=== PATIENT | female | born 1960 | race Caucasian/White ===

== ENCOUNTER 2019-09-22 09:08 | Outpatient (CLI) | payer OTHER, SELFPAY ==
--- NOTE | 2019-09-22 09:30 | USCV_ITS ---
Noelle Ann Age: 59 Gender: F : 1960 Exam Date: 09/22/2019 09:31 Ordering Phys: Breonna Viveros Technologist: Jade Rosa [place]am [place] [facility] [place] Indication: SOB BP: 143 / 70 HR: 57 Rhythm: Sinus Technical Quality: Adequate MEASUREMENTS (Male / Female) Normal Values 2D ECHO LV Diastolic Diameter PLAX 3.9 cm 4.2 - 5.9 / 3.9 - 5.3 cm LV Systolic Diameter PLAX 2.9 cm LV Chamber Size 2.5 cm IVS Diastolic Thickness 1.1 cm 0.6 - 1.0 / 0.6 - 0.9 cm IVS Systolic Thickness 1.2 cm LVPW Diastolic Thickness 1.8 cm 0.6 - 1.0 / 0.6 - 0.9 cm LVPW Systolic Thickness 2.1 cm RV Chamber Size 2.5 cm LVOT Diameter 2.0 cm LV Ejection Fraction 2D Teich 50.7 % LV Ejection Fraction MOD 2C 23.3 % LV Ejection Fraction 2C AL 22.4 % LA Diameter 4.4 cm LA Width 3.0 cm LA Height 2.9 cm RA Width 3.7 cm RA Height 3.1 cm Aorta at Sinotubular Diameter 2.5 cm M-MODE LV Diastolic Diameter MM 4.2 cm 4.2 - 5.9 / 3.9 - 5.3 cm LV Systolic Diameter MM 2.6 cm LV Ejection Fraction MM Teich 68.1 % IVS Diastolic Thickness MM 0.6 cm 0.6 - 1.0 / 0.6 - 0.9 cm IVS Systolic Thickness MM 1.0 cm LVPW Diastolic Thickness MM 0.9 cm 0.6 - 1.0 / 0.6 - 0.9 cm LVPW Systolic Thickness MM 1.5 cm Aortic Annulus Diameter 2.8 cm LA Ao Ratio MM 1.6 MV E Point Septal Separation 0.5 cm DOPPLER AV Peak Velocity 120.0 cm/s LVOT Peak Velocity 113.0 cm/s AV Area Cont Eq vti 3.3 cm squared AV Area Cont Eq pk 3.1 cm squared MV Area PHT 4.8 cm squared Mitral E to A Ratio 1.3 MV E' Velocity 10.0 cm/s Mitral E to MV E' Ratio 9.4 Mitral E to LV E' Lateral Ratio 10.3 Mitral E to LV E' Septal Ratio 8.7 TR Peak Velocity 199.0 cm/s TR Peak Gradient 15.9 mmHg TV Peak E Velocity 76.0 cm/s Right Atrial Pressure 3.0 mmHg Pulmonary Artery Systolic Pressu 18.8 mmHg PV Peak Velocity 61.0 cm/s RV Acceleration Time 0.2 s RV Ejection Time 0.4 s RV AcT/ET 0.5 FINDINGS Left Ventricle Normal left ventricular size, systolic function and wall thickness, with no regional wall motion abnormalities. Normal left ventricular wall thickness. Normal diastolic filling pattern. Left ventricular ejection fraction is estimated at 60 %. Right Ventricle The right ventricle is normal in size and function. Right Atrium The right atrium is normal in size. Left Atrium The left atrium is normal in size. Mitral Valve Structurally normal mitral valve without significant stenosis or prolapse. There is no mitral regurgitation. Aortic Valve Structurally normal aortic valve without significant sclerosis or stenosis. There is no aortic regurgitation. Tricuspid Valve Structurally normal tricuspid valve without significant stenosis or regurgitation. Pulmonary artery systolic pressure is normal. Pulmonic Valve Structurally normal pulmonic valve without significant stenosis. There is no pulmonic regurgitation. Pericardium Normal pericardium without effusion. Aorta Normal ascending aorta dimension. CONCLUSIONS Normal transthoracic echocardiogram. There are no prior echocardiogram studies to compare. Dr. Miguel Burgess MD (Electronically Signed) Final Date: 22 Sep 2019 11:16 S
== END 2019-09-22 09:09 | disposition home or self-care (01) ==
LOC: RAD 09:16
PROVIDERS: PCP Nurse Practitioner Family; Visit Provider Nurse Practitioner Family
DX: R06.02 Shortness of breath (principal)
CPT/HCPCS: 93306

== ENCOUNTER 2020-03-15 18:53 | Emergency (ER) | payer OTHER, SELFPAY ==
[2020-03-15 19:00] VITALS: BP 186/101; PULSE 63; RESP 18; TEMP 36.7; O2SAT 96; BMI 27.8
[2020-03-15 19:56] VITALS: BP 199/120; PULSE 68; RESP 16; O2SAT 98
--- NOTE | 2020-03-15 20:13 | XR_ITS ---
WS: [id number] Portable AP upright chest, 03/15/2020 Clinical Data: stroke symptoms Comparison: None. Findings: No nodules, masses or effusions are seen. The heart is normal. The pulmonary vascularity is not increased. No pneumonia or pneumothorax is seen. Monitor leads are on the chest wall. XR/XR chest 1V portable [id number] Impression: Negative chest.
--- NOTE | 2020-03-15 20:13 | CTR_ITS ---
PROCEDURE INFORMATION: Exam: CT Angiography Head With Contrast Exam date and time: 03/15/2020 8:20 PM Age: 59 years old Clinical indication: Weakness; Additional info: Stroke symptoms TECHNIQUE: Imaging protocol: Computed tomography angiography of the head with intravenous contrast. 3D rendering (Not supervised by radiologist): MIP and/or 3D reconstructed images were created by the technologist. Radiation optimization: All CT scans at this facility use at least one of these dose optimization techniques: automated exposure control; mA and/or kV adjustment per patient size (includes targeted exams where dose is matched to clinical indication); or iterative reconstruction. Contrast material: OMNI 350; Contrast volume: 95 ml; Contrast route: INTRAVENOUS (IV); COMPARISON: No relevant prior studies available. RADIATION DOSE METRICS: Total DLP (mGy-cm): 2565.19 FINDINGS: ANTERIOR CIRCULATION: Right internal carotid artery: There is some mild atherosclerotic change in the right cavernous carotid artery without stenosis. Right middle cerebral artery: Unremarkable. No occlusion or significant stenosis. No aneurysm. 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 The right anterior cerebral artery is supplied via the anterior communicating artery. Left internal carotid artery: There is mild atherosclerotic change in the left cavernous carotid artery without stenosis. Left middle cerebral artery: Unremarkable. No occlusion or significant stenosis. No aneurysm. Left anterior cerebral artery: Unremarkable. No occlusion or significant stenosis. No aneurysm. POSTERIOR CIRCULATION: Right vertebral artery: Unremarkable. No occlusion or significant stenosis. No aneurysm. Left vertebral artery: Unremarkable. No occlusion or significant stenosis. No aneurysm. Basilar artery: Unremarkable. No occlusion or significant stenosis. No aneurysm. Right posterior cerebral artery: Unremarkable. No occlusion or significant stenosis. No aneurysm. Left posterior cerebral artery: Unremarkable. No occlusion or significant stenosis. No aneurysm. Brain: No definite mass, mass effect, or midline shift. Cerebral ventricles: Normal. No ventriculomegaly. Bones/joints: Unremarkable. No acute fracture. Soft tissues: Unremarkable. IMPRESSION: No major vascular occlusion or stenosis in the intracranial circulation. PROCEDURE INFORMATION: Exam: CT Angiography Neck With Contrast Exam date and time: 03/15/2020 8:20 PM Age: 59 years old Clinical indication: Weakness; Additional info: Stroke symptoms TECHNIQUE: Imaging protocol: Computed tomography angiography of the neck with intravenous contrast. 3D rendering (Not supervised by radiologist): MIP and/or 3D reconstructed images were created by the technologist. Radiation optimization: All CT scans at this facility use at least one of these dose optimization techniques: automated exposure control; mA and/or kV adjustment per patient size (includes targeted exams where dose is matched to clinical indication); or iterative reconstruction. Contrast material: OMNI 350; Contrast volume: 95 ml; Contrast route: INTRAVENOUS (IV); COMPARISON: No relevant prior studies available. RADIATION DOSE METRICS: Total DLP (mGy-cm): 2565.19 FINDINGS: Right common carotid artery: Right common carotid artery arises from the aortic arch. Right internal carotid artery: There is atherosclerotic plaque and severe stenosis in the proximal right internal carotid artery with approximately 80% stenosis at the origin of the right internal carotid artery. Right external carotid artery: No occlusion or stenosis of the origin. Right vertebral artery: No stenosis. No dissection or occlusion. Left common carotid artery: No stenosis. No dissection or occlusion. Left internal carotid artery: There is atherosclerotic plaque at the origin of the left internal carotid artery with severe stenosis measuring 80-90% according to the NASCET criteria. Left external carotid artery: No occlusion or stenosis of the origin. Left vertebral artery: No stenosis. No dissection or occlusion. Subclavian arteries: There is an aberrant right subclavian artery. Bones/joints: No acute fracture. Soft tissues: Normal. No significant soft tissue swelling. 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 REFERENCES: NASCET CRITERIA. The degree of internal carotid artery stenosis is based on NASCET criteria. Normal is no stenosis. Mild is less than 50% stenosis. Moderate is 50-69% stenosis. Severe is 70% to 99% stenosis. Total occlusion is no detectable patent lumen. Radiation Dose CTDIVOL = (mGy): DLP = 2565.19~2565.19 (mGy-cm)
--- NOTE | 2020-03-15 20:13 | ECG_ITS ---
[facility] Test Date: 2020-03-15 Pat Name: Noelle Ann Department: Room: Gender: Female [employer]ing [employer] Tender: : 1960 Requested By: Victor Manuel Felix I Order Number: [id number] Ai MD: Ross Muniz M.D. Measurements Intervals [place] Rate: 59 P: 50 FL: 170 QRS: -1 QRSD: 92 T: 41 QT: 444 QTc: 441 Interpretive Statements SINUS BRADYCARDIA WITH SINUS ARRHYTHMIA INCOMPLETE RIGHT BUNDLE BRANCH BLOCK [90+ ms QRS DURATION, TERMINAL R IN V1/V2, 40+ ms S IN I/aVL/V4/V5/V6] SEPTAL MYOCARDIAL INFARCTION , OF INDETERMINATE AGE [40+ ms Q WAVE IN V1/V2] No previous ECG available for comparison Electronically Signed On 03-16-2020 10:15:43 STRAIN TECHNICIAN by Ross Muniz M.D. [id number]
--- NOTE | 2020-03-15 20:13 | CTR_ITS ---
PROCEDURE INFORMATION: Exam: CT Head Without Contrast Exam date and time: 03/15/2020 8:20 PM Age: 59 years old Clinical indication: Dizziness and weakness, extremity; Bilateral; Additional info: Symptoms of acute stroke TECHNIQUE: Imaging protocol: Computed tomography of the head without contrast. Radiation optimization: All CT scans at this facility use at least one of these dose optimization techniques: automated exposure control; mA and/or kV adjustment per patient size (includes targeted exams where dose is matched to clinical indication); or iterative reconstruction. Other technique: STROKE PROTOCOL was implemented. COMPARISON: No relevant prior studies available. RADIATION DOSE METRICS: Total DLP (mGy-cm): 787.15 FINDINGS: Brain: Normal. No hemorrhage. Unremarkable white matter. No mass effect. Cerebral ventricles: No ventriculomegaly. Bones/joints: Unremarkable. No acute fracture. Paranasal sinuses: Visualized sinuses are unremarkable. No fluid levels. Mastoid air cells: Visualized mastoid air cells are well aerated. Soft tissues: Unremarkable. CT/CT head wo con* [id number] IMPRESSION: No acute intracranial abnormality. ASSESSMENT: ASPECTS ([place] Stroke Program Early CT Score) is 10. Radiation Dose CTDIVOL = (mGy): DLP = 787.15 (mGy-cm)
[2020-03-15 20:19] LABS: Add Urine Microscopic? NO
[2020-03-15] MEDS: iohexol 350 mg/mL 100 mL Btl IV (20:26)
--- NOTE | 2020-03-15 20:35 | W.ED.DIZZY ---
HPI - Dizziness General: Chief Complaint: Dizziness Stated Complaint: dizzy, weakness, pt thinks stroke Time Seen by Provider: 03/15/20 19:47 Source: patient and family Mode of arrival: ambulatory Limitations: no limitations History of Present Illness: HPI Narrative: Patient is a 59-year-old with a history of hypertension, carotid artery stenosis with a 67% blockage of her carotid arteries from a few years ago. 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 Symptoms started about 1820 hours. Symptoms have pretty much resolved now. She has no prior history of a CVA, she denies any falls, denies any fever. MD elicited complaint: dizziness, lightheadedness and difficulty walking Onset (ago): hour(s) (2) Timing: sudden onset Severity: moderate Description: lightheadedness, off-balance and difficulty walking History of similar symptoms: No Exacerbating factors: nothing Relieving factors: nothing Associated symptoms: Reports headache(s) and nausea; Denies abnormal vaginal bleeding, change in hearing, chest pain, chills, cough, diaphoresis, ear discharge, ear pressure, fevers/chills, malaise, nasal congestion, palpitations, rash, short of breath, syncope, tinnitus, vomiting or weakness Associated neuro symptoms: Reports gait changes; Deny confusion, difficulty speaking, dysphagia, diplopia, extremity weakness, facial numbness, facial weakness or numbness in extremities Stroke scale total: 0 Review of Systems General: Reports: 10 or more systems reviewed and unremarkable except in HPI and below Const: Denies: chills, malaise or diaphoresis Eyes: Denies: change in vision or blurry vision ENMT: Denies: ear discharge, change in hearing, tinnitus or nasal congestion Card: Denies: chest pain, palpitations or syncope Resp: Denies: dyspnea, productive cough or non-productive cough GI: Reports: nausea; Denies: vomiting or dysphagia : Denies: flank pain, difficulty voiding, dysuria, urinary frequency, urinary urgency or urinary hesitancy Musc: Denies: neck pain, back pain or extremity swelling Skin/Breast: Denies: rash, pruritus or erythema Neuro: Reports: headache(s) and difficulty walking; Denies: numbness in extremities or confusion Endo: Denies: polyuria, polydipsia or tired all the time [facility] PFSH: Medical History (Reviewed 03/15/20 @ 22:57 by Victor Manuel Felix [place], [facility] Anxiety and depression Carotid artery stenosis COPD (chronic obstructive pulmonary disease) HTN (hypertension) IBS (irritable bowel syndrome) Renal artery stenosis Status post proximal row carpectomy of wrist Surgical History (Reviewed 03/15/20 @ 22:57 by Victor Manuel Felix MD, [facility] S/P hysterectomy 2007 S/P rotator cuff repair S/P tonsillectomy and adenoidectomy 1960s S/P tubal ligation Family History (Reviewed 03/15/20 @ 22:57 by Victor Manuel Felix MD, [facility] Mother , malignant liver cancer Heart disease Hypertension Diabetes Cancer Father Heart disease Myocardial infarction Hypertension Family/Other Hypertension Sister Diabetes Daughter Diabetes Social History (Reviewed 03/15/20 @ 22:57 by Victor Manuel Felix MD, [facility] Smoking and tobacco status: current every day smoker History of recent travel: No Physical Exam Const: COMMON NORMALS: no acute distress, average body habitus, patient oriented x3, no limitations, healthy appearing, alert and well nourished HENMT: COMMON NORMALS: normocephalic, atraumatic and moist oral mucous membranes HEAD & SCALP: normocephalic and atraumatic Eye: COMMON NORMALS: Equal, round and reactive pupils present, EOMs intact bilaterally, conjunctivae normal and no scleral icterus CONJUNCTIVA: Yes conjunctivae normal PUPIL: Yes Equal, round and reactive pupils present Neck/C-Spine: COMMON NORMALS: full ROM, supple, no meningeal signs, no JVD and No carotid bruits Resp: COMMON NORMALS: normal respiratory effort, No retractions, No use of accessory muscles, clear to auscultation bilaterally and percussion normal AUSCULTATION: clear to auscultation bilaterally PERCUSSION: percussion normal Cardio: COMMON NORMALS: no JVD, regular rate, regular rhythm, S1 normal heart sound present, S2 normal heart sound present, No gallops present (Cardio), No clicks present (Cardio), No murmurs present (Cardio), No rub (Cardio) and Peripheral pulses 2+ throughout RATE: regular rate RHYTHM: regular rhythm HEART SOUNDS: S1 normal heart sound present and S2 normal heart sound present PERIPHERAL PULSES: Peripheral pulses 2+ throughout GI: COMMON NORMALS: Normal to inspection, nondistended, normoactive bowel sounds present, Soft to palpation, non-tender, No hepatosplenomegaly present, no masses and no bruits PALPATION: Yes Soft to palpation and Yes No hepatosplenomegaly present Extremity: COMMON NORMALS: normal to inspection, full ROM, capillary refill normal, no calf tenderness and no pedal edema Neuro: COMMON NORMALS: patient oriented x3 SENSORIUM/ORIENTATION: Yes alert MENINGEAL SIGNS: Yes no meningeal signs Skin: COMMON NORMALS: no rashes or lesions noted, no wounds, turgor normal, no jaundice, no petechiae and no mottling GENERAL SKIN EXAM: no rashes or lesions noted and turgor normal Course Reevaluation(s): Reevaluation #1: Discussed her lab and imaging findings with her. Also discussed my conversation with the neurologist with her. Advised that because of the severe stenosis she probably needs further work-up preferably inpatient. However the patient is determined not to be admitted to the hospital. She says she will rest and not do anything strenuous and will follow-up outpatient. She is very resistant to hospitalization. She understands the risks involved but desires to be discharged. She agrees to follow-up with Dr. Olivares in the office and to obtain an outpatient MRI. We will start her on Plavix and Lipitor. She already takes aspirin. She had had a previous adverse effect from a statin in the past but is willing to try it again. Time: 21:45 Consultations: Consultation #1: Discussed the patient with Dr. Olivares. With the degree of carotid artery stenosis she is very high risk and she will benefit from admission and work-up. I explained my conversation with the patient and that she did not want to be admitted so she advised an MRI of her brain to be done as soon as possible and she would like to see the patient within 1 week. Meanwhile we will start the patient on Plavix, continue aspirin, and start her on Lipitor. Time: 21:30 Vital Signs: Vital signs: Vital Signs Temperature 98.1 F 03/15/20 19:00 Pulse Rate 68 03/15/20 22:42 Respiratory Rate 18 03/15/20 22:42 Blood Pressure 188/88 03/15/20 22:42 Pulse Oximetry 98 03/15/20 22:42 MDM - Dizziness MDM Narrative: Medical decision making narrative: 59-year-old female patient who presented to the emergency department with strokelike symptoms. A stroke alert was called and emergent head CT and head and neck CTA were obtained. Head CT was negative CTA of her head and neck showed severe bilateral carotid artery stenosis. The patient's previous numbers were 67% according to her, now they are 80 and 90% occluded. I had several conversations with the patient but the patient was adamant that she would not be admitted to the hospital and opted to have an outpatient work-up. She will be given 1 week off from work as she performs strenuous activities at work. She was given a loading dose of Plavix in the emergency department and discharged home with a prescription for Plavix and atorvastatin. She will obtain an urgent outpatient MRI of her brain and will see the neurologist within 1 week. Medical Records: Attestation: I reviewed the patient's medical records. Lab Data: Attestation: I reviewed the patient's lab results. Labs: Lab Results 03/15/20 03/15/20 03/15/20 Range/Units 20:10 20:10 20:10 WBC Cancelled Corrected WBC Cancelled RBC Cancelled Hgb Cancelled Hct Cancelled MCV Cancelled MCH Cancelled MCHC Cancelled RDW Cancelled Plt Count Cancelled MPV Cancelled Gran % Cancelled Neut % (Auto) Cancelled Lymph % (Auto) Cancelled [place] % (Auto) Cancelled Eos % (Auto) Cancelled Baso % (Auto) Cancelled Neut # (Auto) Cancelled Lymph # (Auto) Cancelled [place] # (Auto) Cancelled Eos # (Auto) Cancelled Baso # (Auto) Cancelled Absolute Gran (aut o) Cancelled Nucleated RBC % (a uto) Cancelled Nucleated RBCs # Cancelled PT 12.70 (12.1-14.9) SECO NDS INR 0.93 (0.8-1.2) APTT 23.4 L (23.9-36.7) SECO NDS Sodium 140 (136-145) mmol/L Potassium 4.1 (3.5-5.1) mmol/L Chloride 103 (98-107) mmol/L Carbon Dioxide 26 (22-29) mmol/L Anion Gap 15.1 (5-19) BUN 10 (6-20) mg/dL Creatinine 0.7 (0.5-0.9) mg/dL GFR Calculation 85.6 L (90-130) mL/min Glucose 84 (65-115) mg/dL POC Glucose (70-110) mg/dL Calculated Osmolal ity 288 (285-295) mOsm/k g Calcium 9.4 (8.5-10.5) mg/dL Total Bilirubin 0.3 (0.15-1.2) mg/dL AST 19 (0-32) U/L ALT 13 (0-33) U/L Alkaline Phosphata se 83 (35-105) IU/L Troponin T Baselin e (0-10) ng/L Total Protein 7.0 (6.6-8.7) g/dL Albumin 4.3 (3.5-5.2) g/dL Globulin 2.7 (1.3-4.6) g/dL Urine Color (Yellow) Urine Appearance (CLEAR) Urine pH (5-7) Ur Specific Gravit y (1.005-1.030) Urine Protein (Negative) Urine Glucose (UA) (Normal) Urine Ketones (Negative) Urine Blood (Negative) Urine Nitrate (Negative) Urine Bilirubin (Negative) Urine Urobilinogen (Negative) mg/dL Ur Leukocyte Aundrea ase (Negative) Urine Opiates Scre en (Negative) ng/mL Ur Barbiturates Sc reen (Negative) ng/mL Ur Phencyclidine S crn (Negative) ng/mL Ur Amphetamines Sc reen (Negative) ng/mL U Benzodiazepines Scrn (Negative) ng/mL Urine Cocaine Scre en (Negative) ng/mL U Marijuana (THC) Screen (Negative) ng/mL 03/15/20 03/15/20 03/15/20 Range/Units 20:10 20:10 20:10 WBC Corrected WBC RBC Hgb Hct MCV MCH MCHC RDW Plt Count MPV Gran % Neut % (Auto) Lymph % (Auto) [place] % (Auto) Eos % (Auto) Baso % (Auto) Neut # (Auto) Lymph # (Auto) [place] # (Auto) Eos # (Auto) Baso # (Auto) Absolute Gran (aut o) Nucleated RBC % (a uto) Nucleated RBCs # PT (12.1-14.9) SECO NDS INR (0.8-1.2) APTT (23.9-36.7) SECO NDS Sodium (136-145) mmol/L Potassium (3.5-5.1) mmol/L Chloride (98-107) mmol/L Carbon Dioxide (22-29) mmol/L Anion Gap (5-19) BUN (6-20) mg/dL Creatinine (0.5-0.9) mg/dL GFR Calculation (90-130) mL/min Glucose (65-115) mg/dL POC Glucose (70-110) mg/dL Calculated Osmolal ity (285-295) mOsm/k g Calcium (8.5-10.5) mg/dL Total Bilirubin (0.15-1.2) mg/dL AST (0-32) U/L ALT (0-33) U/L Alkaline Phosphata se (35-105) IU/L Troponin T Baselin e 6 (0-10) ng/L Total Protein (6.6-8.7) g/dL Albumin (3.5-5.2) g/dL Globulin (1.3-4.6) g/dL Urine Color Yellow (Yellow) Urine Appearance Clear (CLEAR) Urine pH 6.0 (5-7) Ur Specific Gravit y 1.015 (1.005-1.030) Urine Protein Neg (Negative) Urine Glucose (UA) Norm (Normal) Urine Ketones Negative (Negative) Urine Blood Neg (Negative) Urine Nitrate Negative (Negative) Urine Bilirubin Neg (Negative) Urine Urobilinogen Norm (Negative) mg/dL Ur Leukocyte Aundrea ase Negative (Negative) Urine Opiates Scre en Negative (Negative) ng/mL Ur Barbiturates Sc reen Negative (Negative) ng/mL Ur Phencyclidine S crn Negative (Negative) ng/mL Ur Amphetamines Sc reen Negative (Negative) ng/mL U Benzodiazepines Scrn Negative (Negative) ng/mL Urine Cocaine Scre en Negative (Negative) ng/mL U Marijuana (THC) Screen Positive H (Negative) ng/mL 03/15/20 03/15/20 Range/Units 20:38 20:50 WBC 7.4 Corrected WBC RBC 4.91 Hgb 14.6 Hct 43.7 MCV 89.0 MCH 29.7 MCHC 33.4 RDW 12.2 Plt Count 233 MPV 9.5 Gran % Neut % (Auto) 45.1 Lymph % (Auto) 45.9 [place] % (Auto) 6.9 Eos % (Auto) 1.6 Baso % (Auto) 0.4 Neut # (Auto) 3.34 Lymph # (Auto) 3.4 [place] # (Auto) 0.5 Eos # (Auto) 0.1 Baso # (Auto) 0.0 Absolute Gran (aut o) Nucleated RBC % (a uto) 0 Nucleated RBCs # 0.0 PT (12.1-14.9) SECO NDS INR (0.8-1.2) APTT (23.9-36.7) SECO NDS Sodium (136-145) mmol/L Potassium (3.5-5.1) mmol/L Chloride (98-107) mmol/L Carbon Dioxide (22-29) mmol/L Anion Gap (5-19) BUN (6-20) mg/dL Creatinine (0.5-0.9) mg/dL GFR Calculation (90-130) mL/min Glucose (65-115) mg/dL POC Glucose 86 (70-110) mg/dL Calculated Osmolal ity (285-295) mOsm/k g Calcium (8.5-10.5) mg/dL Total Bilirubin (0.15-1.2) mg/dL AST (0-32) U/L ALT (0-33) U/L Alkaline Phosphata se (35-105) IU/L Troponin T Baselin e (0-10) ng/L Total Protein (6.6-8.7) g/dL Albumin (3.5-5.2) g/dL Globulin (1.3-4.6) g/dL Urine Color (Yellow) Urine Appearance (CLEAR) Urine pH (5-7) Ur Specific Gravit y (1.005-1.030) Urine Protein (Negative) Urine Glucose (UA) (Normal) Urine Ketones (Negative) Urine Blood (Negative) Urine Nitrate (Negative) Urine Bilirubin (Negative) Urine Urobilinogen (Negative) mg/dL Ur Leukocyte Aundrea ase (Negative) Urine Opiates Scre en (Negative) ng/mL Ur Barbiturates Sc reen (Negative) ng/mL Ur Phencyclidine S crn (Negative) ng/mL Ur Amphetamines Sc reen (Negative) ng/mL U Benzodiazepines Scrn (Negative) ng/mL Urine Cocaine Scre en (Negative) ng/mL U Marijuana (THC) Screen (Negative) ng/mL Imaging Data^: CT Head: Attestation: I personally reviewed and interpreted this imaging study as follows: Radiologist's impression: [facility] [address] [facility] [place] [address] CT Scan Report Signed Patient: Noelle Ann #: [id number] : 1Acct#:[id number] Age/Sex: 59 / FADM Date: 03/15/20 Loc: ERRoom/Bed: Attending Dr: Ordering Provider/Ordering MD: Victor Manuel Felix [place], [facility] Date of Service: 03/15/20 Procedure(s): CT head wo con* [id number] Accession Number(s): [id number] Report Number: [id number] PROCEDURE INFORMATION: Exam: CT Head Without Contrast Exam date and time: 03/15/2020 8:20 PM Age: 59 years old Clinical indication: Dizziness and weakness, extremity; Bilateral; Additional info: Symptoms of acute stroke TECHNIQUE: Imaging protocol: Computed tomography of the head without contrast. Radiation optimization: All CT scans at this facility use at least one of these dose optimization techniques: automated exposure control; mA and/or kV adjustment per patient size (includes targeted exams where dose is matched to clinical indication); or iterative reconstruction. Other technique: STROKE PROTOCOL was implemented. COMPARISON: No relevant prior studies available. RADIATION DOSE METRICS: Total DLP (mGy-cm): 787.15 FINDINGS: Brain: Normal. No hemorrhage. Unremarkable white matter. No mass effect. Cerebral ventricles: No ventriculomegaly. Bones/joints: Unremarkable. No acute fracture. Paranasal sinuses: Visualized sinuses are unremarkable. No fluid levels. Mastoid air cells: Visualized mastoid air cells are well aerated. Soft tissues: Unremarkable. CT/CT head wo con* [id number] IMPRESSION: No acute intracranial abnormality. ASSESSMENT: ASPECTS ([place] Stroke Program Early CT Score) is 10. Radiation Dose CTDIVOL = (mGy): DLP = 787.15 (mGy-cm) Dictated By:Shayne Park Signed By:Epifanio Park Date/Time:03/15/202032 DD/ [address]: Attestation: I personally reviewed and interpreted this imaging study as follows: Radiologist's impression: [address] [place] [address] CT Scan Report Signed Patient: Noelle Ann #: [id number] : 1Acct#:[id number] Age/Sex: 59 / FADM Date: 03/15/20 Loc: ERRoom/Bed: Attending Dr: Ordering Provider/Ordering MD: Victor Manuel Felix [place], [facility] Date of Service: 03/15/20 Procedure(s): CT angio headneck* [id number] Accession Number(s): [id number] Report Number: [id number] PROCEDURE INFORMATION: Exam: CT Angiography Head With Contrast Exam date and time: 03/15/2020 8:20 PM Age: 59 years old Clinical indication: Weakness; Additional info: Stroke symptoms TECHNIQUE: Imaging protocol: Computed tomography angiography of the head with intravenous contrast. 3D rendering (Not supervised by radiologist): MIP and/or 3D reconstructed images were created by the technologist. Radiation optimization: All CT scans at this facility use at least one of these dose optimization techniques: automated exposure control; mA and/or kV adjustment per patient size (includes targeted exams where dose is matched to clinical indication); or iterative reconstruction. Contrast material: OMNI 350; Contrast volume: 95 ml; Contrast route: INTRAVENOUS (IV); COMPARISON: No relevant prior studies available. RADIATION DOSE METRICS: Total DLP (mGy-cm): 2565.19 FINDINGS: ANTERIOR CIRCULATION: Right internal carotid artery: There is some mild atherosclerotic change in the right cavernous carotid artery without stenosis. Right middle cerebral artery: Unremarkable. No occlusion or significant stenosis. No aneurysm. 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 The right anterior cerebral artery is supplied via the anterior communicating artery. Left internal carotid artery: There is mild atherosclerotic change in the left cavernous carotid artery without stenosis. Left middle cerebral artery: Unremarkable. No occlusion or significant stenosis. No aneurysm. Left anterior cerebral artery: Unremarkable. No occlusion or significant stenosis. No aneurysm. POSTERIOR CIRCULATION: Right vertebral artery: Unremarkable. No occlusion or significant stenosis. No aneurysm. Left vertebral artery: Unremarkable. No occlusion or significant stenosis. No aneurysm. Basilar artery: Unremarkable. No occlusion or significant stenosis. No aneurysm. Right posterior cerebral artery: Unremarkable. No occlusion or significant stenosis. No aneurysm. Left posterior cerebral artery: Unremarkable. No occlusion or significant stenosis. No aneurysm. Brain: No definite mass, mass effect, or midline shift. Cerebral ventricles: Normal. No ventriculomegaly. Bones/joints: Unremarkable. No acute fracture. Soft tissues: Unremarkable. IMPRESSION: No major vascular occlusion or stenosis in the intracranial circulation. PROCEDURE INFORMATION: Exam: CT Angiography Neck With Contrast Exam date and time: 03/15/2020 8:20 PM Age: 59 years old Clinical indication: Weakness; Additional info: Stroke symptoms TECHNIQUE: Imaging protocol: Computed tomography angiography of the neck with intravenous contrast. 3D rendering (Not supervised by radiologist): MIP and/or 3D reconstructed images were created by the technologist. Radiation optimization: All CT scans at this facility use at least one of these dose optimization techniques: automated exposure control; mA and/or kV adjustment per patient size (includes targeted exams where dose is matched to clinical indication); or iterative reconstruction. Contrast material: OMNI 350; Contrast volume: 95 ml; Contrast route: INTRAVENOUS (IV); COMPARISON: No relevant prior studies available. RADIATION DOSE METRICS: Total DLP (mGy-cm): 2565.19 FINDINGS: Right common carotid artery: Right common carotid artery arises from the aortic arch. Right internal carotid artery: There is atherosclerotic plaque and severe stenosis in the proximal right internal carotid artery with approximately 80% stenosis at the origin of the right internal carotid artery. Right external carotid artery: No occlusion or stenosis of the origin. Right vertebral artery: No stenosis. No dissection or occlusion. Left common carotid artery: No stenosis. No dissection or occlusion. Left internal carotid artery: There is atherosclerotic plaque at the origin of the left internal carotid artery with severe stenosis measuring 80-90% according to the NASCET criteria. Left external carotid artery: No occlusion or stenosis of the origin. Left vertebral artery: No stenosis. No dissection or occlusion. Subclavian arteries: There is an aberrant right subclavian artery. Bones/joints: No acute fracture. Soft tissues: Normal. No significant soft tissue swelling. CT/CT angio headneck* [id number] IMPRESSION: Severe stenoses of the proximal internal carotid arteries bilaterally. REFERENCES: NASCET CRITERIA. The degree of internal carotid artery stenosis is based on NASCET criteria. Normal is no stenosis. Mild is less than 50% stenosis. Moderate is 50-69% stenosis. Severe is 70% to 99% stenosis. Total occlusion is no detectable patent lumen. Radiation Dose CTDIVOL = (mGy): DLP = 2565.19~2565.19 (mGy-cm) Dictated By:Shayne Park Signed By:Jacob Parkigned Date/Time:03/15/202045 DD/ 43 EKG Data^: EKG 1: Attestation: I personally reviewed and interpreted this EKG as follows: EKG interpretation date: 03/15/20 EKG interpretation time: 19:34 Prior EKG tracings: not available for review Interpretation: Sinus bradycardia. Heart rate 59 bpm. Incomplete right bundle branch block. ST depression in leads II and III Discharge Plan Discharge Patient Disposition: Home Clinical Impression: Cerebrovascular accident Qualifiers: CVA mechanism: unspecified Qualified Code(s): I63.9 - Cerebral infarction, unspecified Condition: Stable Prescriptions: New Plavix 75 mg tablet 75 mg PO DAILY Qty: 30 RF: 0 Lipitor 40 mg tablet 40 mg PO DAILY Qty: 30 RF: 0 Continued citalopram [Celexa] 20 mg tablet 40 mg PO DAILY RF: 0 alprazolam 0.5 mg tablet 0.5 mg PO TID PRN (Reason: Anxiety) RF: 0 biotin 5 mg capsule 5 mg PO DAILY RF: 0 cholecalciferol (vitamin D3) 125 mcg (5,000 unit) capsule 5,000 unit PO DAILY RF: 0 amlodipine 5 mg tablet 5 mg PO BID 90 Days Qty: 180 RF: 3 aspirin [Adult Low Dose Aspirin] 81 mg tablet,delayed release (DR/EC) 81 mg PO DAILY 90 Days Qty: 90 RF: 3 isosorbide mononitrate 30 mg tablet extended release 24 hr 15 mg PO BID 90 Days Qty: 90 RF: 3 metoprolol tartrate 25 mg tablet See Rx Instructions PO BID Qty: 180 RF: 2 magnesium oxide 400 mg magnesium tablet 400 mg PO DAILY Qty: 90 RF: 3 Probiotic 1 tab PO DAILY RF: 0 potassium 1 tab PO DAILY RF: 0 furosemide 40 mg tablet 40 mg PO DAILY PRN (Reason: Edema) RF: 0 Discharge Orders: Discharge Order (Routine); Ordered 03/15/20 Ordered By: Victor Manuel Felix Referrals: Taryn Olivares MD [Physician] - 4-7 days Reshma Gibson FNP [Primary Care Provider] - 1-3 days Discharge Diet: Low Salt and Low Cholesterol Discharge Activity: Limit activity as instructed Patient Instructions: Carotid Artery Disease (GEN), TIA Activity Restrictions/Additional Instructions: Return for any new or worsening symptoms. Follow-up with your primary care provider within 3 days and follow-up with the neurologist within 1 week. You will be contacted by case management to schedule an appointment with a neurologist as soon as possible and for an MRI of your brain also as soon as possible. If you develop any symptoms whatsoever please return emergently to the emergency room for evaluation. Stand Alone Forms: Work/School Release Coding Level of Care Code ED [employer] for Maria Isabel Khanna
[2020-03-15 20:37] LABS: Bilirubin Urine Neg (Negative); Blood Urine Neg (Negative); Glucose Urine UA Norm (Normal); Ketones Urine Negative (Negative); Leukocyte Esterase Urine Negative (Negative); Nitrate Urine Negative (Negative); Protein Urine Neg (Negative); Specific Gravity, Urine 1.015 (1.005-1.030); Urine Appearance Clear (CLEAR); Urine Color Yellow (Yellow); Urobilinogen Urine Norm (Negative)
[2020-03-15 20:42] VITALS: BP 196/95; PULSE 63; RESP 19; O2SAT 97
[2020-03-15 20:42] LABS: Albumin Level 4.3 g/dL (3.5-5.2); Alkaline Phosphatase 83 IU/L (35-105); Blood Urea Nitrogen 10 mg/dL (6-20); Calcium 9.4 mg/dL (8.5-10.5); Carbon Dioxide 26 mmol/L (22-29); Chloride 103 mmol/L (98-107); Globulin 2.7 g/dL (1.3-4.6); Glomerular Filtration Rate 85.6 mL/min (90-130); Glucose 84 mg/dL (65-115); Osmolality Calculated 288 mOsm/kg (285-295); Sodium 140 mmol/L (136-145); Total Bilirubin 0.3 mg/dL (0.15-1.2)
[2020-03-15 20:42] LABS: Glucose Point of Care 86 mg/dL (70-110)
[2020-03-15 20:45] VITALS: O2SAT 97
[2020-03-15 20:48] LABS: Alanine Aminotransferase 13 U/L (0-33); Anion Gap 15.1 (5-19); Aspartate Amino Transferase 19 U/L (0-32); Potassium 4.1 mmol/L (3.5-5.1)
[2020-03-15 20:54] LABS: INR 0.93 (0.8-1.2)
[2020-03-15 20:55] LABS: Partial Thromboplastin Time 23.4 SECONDS (23.9-36.7)
[2020-03-15 20:57] LABS: Basophils % 0.4 %; Eosinophils # 0.1 10^3/uL (0.0-0.8); Eosinophils % 1.6 %; Hematocrit 43.7 % (37.0-47.0); Hemoglobin 14.6 g/dL (11.5-15.3); Lymphocytes # 3.4 10^3/uL (0.8-4.8); Lymphocytes % 45.9 %; Mean Corpuscular HGB Conc 33.4 g/dL (30.0-36.0); Mean Corpuscular Hemoglobin 29.7 pg (28.0-34.0); Mean Platelet Volume 9.5 fL (7.4-10.4); Monocytes # 0.5 10^3/uL (0.2-0.9); Monocytes % 6.9 %; Neutrophils # 3.34 10^3/uL (1.8-7.7); Neutrophils % 45.1 %; Nucleated Red Blood Cells % 0 %; Platelet Count 233 10^3/cmm (130-400); Red Blood Count 4.91 10^6/uL (4.1-5.3); Red Cell Distribution Width 12.2 % (12.1-15.1); White Blood Count 7.4 10^3/uL (4.0-10.0)
[2020-03-15 21:01] LABS: Amphetamines Screen Urine Negative (Negative); Barbiturates Screen Urine Negative (Negative); Benzodiazepines Screen Urine Negative (Negative); Cocaine Screen Urine Negative (Negative); Opiate Screen Urine Negative (Negative); PCP Screen Urine Negative (Negative); THC Screen Urine Positive (Negative)
[2020-03-15 21:31] LABS: Troponin(5th) Baseline 6 ng/L (0-10)
[2020-03-15] MEDS: clopidogrel 300 mg Tablet 600 MG PO (22:24)
[2020-03-15 22:25] VITALS: BP 188/88; PULSE 68; RESP 18; O2SAT 98
[2020-03-15 22:42] VITALS: BP 188/88; PULSE 68; RESP 18; O2SAT 98
--- NOTE | 2020-03-16 11:01 | DCPLANNER ---
erp manager had message to schedule a follow up appointment with Dr. Olivares. erp manager called Mendez Barnard, payroll and benefits coordinator to Dr. Olivares. erp manager was unable to speak with payroll and benefits coordinator at this time, a voicemail was left with patients information, that patient was needing to be seen urgently, and that caser up sent an order to centralized scheduling for an MRI of the brain, and the results to be sent Dr. Olivares. Clinic will call patient with appointment information.
--- NOTE | 2020-03-18 13:47 | DCPLANNER ---
Patient has a follow up appointment scheduled for Sunday, March 29, [address] at 8:[address] Olivares. Clinic will call patient with appointment information.
--- NOTE | 2020-04-19 12:16 | DCPLANNER ---
Patient had an out patient MRI scheduled for 04.08.20 - patient did not attend appointment. Patient had a follow up appointment scheduled for 03.29.[address] Olivares - appointment was cancelled.
== END 2020-03-15 22:42 | disposition home or self-care (01) ==
PROVIDERS: Emergency Provider Family Medicine; PCP Nurse Practitioner Family
DX: I63.9 Cerebral infarction, unspecified (principal); I70.1 Atherosclerosis of renal artery; I10 Essential (primary) hypertension; J44.9 Chronic obstructive pulmonary disease, unspecified; F41.8 Other specified anxiety disorders; Z79.82 Long term (current) use of aspirin; F17.200 Nicotine dependence, unspecified, uncomplicated; I65.23 Occlusion and stenosis of bilateral carotid arteries
CPT/HCPCS: 12345; 36416; 70450; 70496; 70498; 71045; 80053; 80306; 81003; 82962; 84484; 85025; 85610; 85730; 93005; 99283; 99284; Q9967